=== PATIENT | female | born 1990 | race Caucasian/White ===

== ENCOUNTER 2019-12-05 11:28 | Emergency (ER) | payer OTHER, SELFPAY ==
[2019-12-05 13:04] VITALS: BP 114/69; PULSE 83; RESP 18; TEMP 36.9; O2SAT 97; BMI 25.1
--- NOTE | 2019-12-05 13:11 | CT_ITS ---
EXAMINATION: CT ABDOMEN AND PELVIS WITH CONTRAST CLINICAL INFORMATION: Abdominal pain and bleeding. COMPARISON: CT abdomen and pelvis of from 07/30/2016, 09/11/2014, 07/18/2014. Abdominal ultrasound of 12/05/2015. TECHNIQUE: Multidetector volumetric images were obtained from the superior aspect of the liver through the pubic symphysis following administration 85 mL of Omnipaque 350 intravenous contrast. Sagittal and coronal reformatted images were obtained on the technologist's workstation. Oral contrast: No This CT examination was performed using dose optimization techniques as appropriate, variously including the following: *Automated exposure control *Adjustment of mA and/or kV according to patient size (this includes techniques or standardized protocols for targeted exams where dose is matched to indication/reason for exam; i.e. extremities or head) *Use of iterative reconstruction technique DLP: 381 mGy-cm FINDINGS: LUNG BASES: The visualized lung bases are unremarkable. LIVER, GALLBLADDER, AND BILIARY TREE: The liver is normal in size, shape, and attenuation. No focal hepatic lesion or biliary ductal dilatation is present. The gallbladder is unremarkable with no evidence of radiopaque gallstones, gallbladder wall thickening, or obvious pericholecystic inflammatory changes. PANCREAS: Unremarkable. SPLEEN: Unremarkable. ADRENAL GLANDS: Unremarkable. KIDNEYS AND URETERS: The kidneys are normal in size, shape, and attenuation. No hydronephrosis, hydroureter, or calculi seen. No perinephric stranding. Subcentimeter low-attenuation in the upper right kidney laterally (series 3 image 16) is stable since previous study. BLADDER: Unremarkable. GASTROINTESTINAL TRACT: The stomach is largely decompressed and therefore, not optimally evaluated. No evidence of abnormal small bowel dilatation. An appendix is noted with hyperdense material in the appendix which may represent fecal contents versus appendicolith. The finding is stable in appearance compared to previous study. No evidence of periappendiceal fat stranding. The colon is normal in caliber. No evidence of colonic wall thickening or pericolonic fat stranding. Moderate stool burden is noted in the colon. ABDOMINAL WALL: No significant hernia is appreciated. LYMPH NODES: No evidence of pathologically enlarged lymph nodes are noted. VASCULAR: Unremarkable. PELVIC VISCERA: Unremarkable CT appearance of the uterus and ovaries/adnexa. OSSEOUS STRUCTURES: The bones are stable. No evidence of acute or suspicious osseous lesion. IMPRESSION: No acute abnormality. Moderate stool burden in the colon.
[2019-12-05 13:20] VITALS: PULSE 69; O2SAT 100
--- NOTE | 2019-12-05 13:30 | PC.NURSE ---
PT TRIAGED C/O 1 EPISODE OF VOM MIGEL RED BLOOD THIS AM, REPORTING BLACK STOOLS LAST WK. TAKES NSAIDS REGULARLY FOR HEADACHES, CURRENTLY C/O HEADACHE WELL. HX IBS. VS WNL, PT SPEAKING IN CLEAR FULL SENTENCES. ALL SPECIMENS ACQUIRED, 20G IN R AC, FLUIDS RUNNING.
[2019-12-05] MEDS: 0.9 % Sodium Chloride 1,000 ML 999 ML IVCONT (13:37)
--- NOTE | 2019-12-05 13:54 | ED_ITS ---
HPI - Nausea/Vomiting/Diarrhea General Chief complaint: Nausea/Vomiting/Diarrhea Stated complaint: VOMITING BLOOD Time Seen by Provider: 12/05/19 13:11 Source: patient Mode of arrival: ambulatory Limitations: no limitations History of Present Illness HPI Narrative: This is a 29-year-old female with past medical history that is significant for anxiety disorder, depression, including mCi with seizure and hypertension during her , chronic abdominal pain with IBS, abdominal hernia repair in 2015, 3 C sections who reports she has chronic abdominal pain due to IBS and being followed by GI here Dr. Lyle reports had upper abdominal pain for the past 2 days and this morning she brushed her teeth and vomited. States she vomited 2 oz of blood in bathroom sink she went to work but still had pain that is similar to her chronic pain however this episode of vomiting blood prompt her to come to emergency room. She reports that she has chronic irregular bowel patterns for which she has seen GI for and there is no change to this. No recent sick contacts or travel. No recent food exposure. MD elicited complaint: nausea, vomiting and abdominal pain Onset (ago): day(s) Description of vomiting: bilious and blood-streaked Description of diarrhea: loose Associated nausea: Yes Associated abdominal pain: Yes Location of pain: diffuse Radiation: diffuse Pain consistency: constant Severity: moderate Quality: aching Exacerbating factors: other (Stress ) Treatment prior to arrival: none Related Data Previous Rx's Medication Instructions Recorded dicyclomine 20 mg PO BID #20 tab 12/05/19 ondansetron HCl [Zofran] 4 mg PO Q8H PRN #10 tab 12/05/19 polyethylene glycol 3350 [Miralax] 17 g PO DAILY PRN #238 g 12/05/19 Allergies Allergy/AdvReac Type Severity Reaction Status Date / Time Sulfa (Sulfonamide Allergy Unknown hives Verified 12/05/19 13:03 Antibiotics) sulfamethoxazole Allergy Unknown RASH Verified 12/05/19 13:03 [From BACTRIM] trimethoprim [From BACTRIM] Allergy Unknown RASH Verified 12/05/19 13:03 acetaminophen [Vicodin] AdvReac Unknown nausea Verified 12/05/19 13:03 hydrocodone [Vicodin] AdvReac Unknown nausea Verified 12/05/19 13:03 Review of Systems Review of Systems: Constitutional: No Weight loss, No Fever, No Chills, No Night Sweats, No Fatigue, No Malaise ENT/Mouth: No Hearing loss, No Ear Pain, No Nasal Congestion, No Sinus Pain, No Hoarseness, No sore throat, No Rhinorrhea, No Swallowing Difficulty Eyes: No Eye Pain, No Swelling, No Redness, No Foreign Body, No Discharge, No Vision Changes Cardiovascular: No Chest Pain, No SOB, No Dyspnea on Exertion, No Orthopnea, No Edema, No Palpitations Respiratory: No Cough, No Sputum, No Wheezing, No Smoke Exposure, No Dyspnea Gastrointestinal: + Nausea, + Vomiting, No Diarrhea, No Constipation, + abdominal Pain, No Hematochezia, No Melena Genitourinary: no irregular bleeding, No Dysuria, No Urinary Frequency, No Hematuria, No Urinary Incontinence, No Urgency, No Flank Pain, No Urinary Flow Changes, No Hesitancy Musculoskeletal: No joint pain, No Myalgias, No Joint Swelling Skin: No Skin Lesions, No rash Neuro: No Weakness, No Numbness, No Paresthesias, No Loss of Consciousness, No Dizziness, No Headache Psych: No Anxiety/Panic, No Depression, No SI/HI/AH/VH, No Social Issues, Heme/Lymph: No Bruising, No Bleeding,No Lymphadenopathy Endocrine: No Polyuria, No Polydipsia, No Temperature Intolerance Gastrointestinal: Gastrointestinal: Reports nausea PMFSH Past Medical History Attestation statement: The following information was validated with the patient. Medical History (Updated 12/05/19 @ 16:28 by Yemi Crawford NP) Anxiety IBS (irritable bowel syndrome) PTSD (post-traumatic stress disorder) Social History Social History Alcohol intake: never Smoking Status: Never smoker Use of substances other than those prescribed or required for medical reasons: No Advance Directives: No Advance Directives Information Provided: Yes Physical Exam Vital Signs: Vital Signs: Vital Signs Temp Pulse Resp BP Pulse Ox 12/05/19 13:20 100 12/05/19 13:04 98.5 F 83 18 114/69 97 Body Mass Index 25.1 Reviewed Const: General: cooperative and healthy appearing; No acute distress or intoxicated appearing Nutritional Appearance: average body habitus Orientation/consciousness: patient oriented x3 HENMT: Head: Yes normal to inspection Ears: hearing grossly normal bilaterally Eyes: General: appearance normal, both eyes and all related structures Visual Ruby: normal visual ruby by confrontation Neck: Neck: Yes normal visual inspection and No tender Thyroid: Thyroid normal Chest: Chest palpation & inspection: normal inspection of the chest Resp: Effort & Inspection: normal respiratory effort Cardio: Jugular venous distension: no JVD GI: Inspection: Yes normal to inspection Palpation (GI): Soft to palpation Percussion: Yes normal to percussion Auscultation: normal bowel sounds Rectal Exam - Female: visual inspection normal ( RN Caitlin present for art teacher occult negative.) and normal sphincter tone : General: Yes no CVA tenderness Back/Spine/Pelvis: Back: no CVA tenderness Skin: General skin exam: no rashes or lesions noted Neuro: General: patient oriented x3 Extrem: General: Yes normal to inspection MDM - Nausea/Vomiting/Diarrhea MDM Narrative Medical decision making narrative: Now endorses regular NSAID use. Workup essentially unremarkable. H&H stable. Has not had any nausea vomiting or diarrhea here. abdominal exam benign. CT shows moderate constipation otherwise no acute findings. Occult negative. Stable for outpatient follow-up. Medical Records Attestation: I reviewed the patient's medical records. Medical records narrative: Oct 25, 2017 Dr. Shea: Colonoscopy Findings: No polyps detected. Normal TI. Random biopsies obtained from the colon to check for IBD/microscopic colitis No source found for abdominal pain possible related to adhesions from past C Sections versus constipation pre-dominent IBS Lab Data Result diagrams: 12/05/19 13:35 12/05/19 13:35 Labs: Lab Results 12/05/19 12/05/19 12/05/19 Range/Units 13:35 13:35 13:35 WBC 7.1 (4.8-10.8) X10*3/uL RBC 4.22 (4.20-5.50) X10*6/uL Hgb 13.7 (12.0-16.0) g/dl Hct 39.5 (37-47) % MCV 93.6 (80-98) fL MCH 32.5 (27.0-33.0) pg MCHC 34.7 (31.0-35.0) g/dl RDW 11.1 (11.0-16.0) % Plt Count 248 (160-400) X10*3/uL MPV 8.9 L (9.4-12.3) fL Immature Gran % (Auto) 0.3 (0.0-0.4) % Neut % (Auto) 57.7 (45-73) % Lymph % (Auto) 35.2 (20-40) % [place] % (Auto) 6.0 (2-11) % Eos % (Auto) 0.4 (0-4) % Baso % (Auto) 0.4 (0-2) % Lymph # (Auto) 2.5 (1.2-4.9) X10*3/uL [place] # (Auto) 0.4 (0.1-1.2) X10*3/uL Eos # (Auto) 0.0 (0.0-0.4) X10*3/uL Baso # (Auto) 0.0 (0.0-0.2) X10*3/uL Abs Immat Gran (auto) 0.02 (0.00-0.03) X10*3/uL Absolute Neuts (auto) 4.1 (2.0-8.3) X10*3/uL Absolute Nucleated RBC 0.000 (0.0-0.012) X10*3/uL Nucleated RBC % (auto) 0.0 (0.0-0.2) /100WBC APTT 32.9 (24.1-38.0) SEC Sodium (135-145) mmol/L Potassium (3.3-5.1) mmol/l Chloride (96-108) mmol/L Carbon Dioxide (22-29) mmol/L Anion Gap (12-20) BUN (9-16) mg/dL Creatinine (0.5-1.4) mg/dL Estim Creat Clear Calc Estimated GFR Random Glucose (60-115) mg/dL Calcium (8.4-10.2) mg/dL Total Bilirubin (0.0-1.0) mg/dL Direct Bilirubin (0.0-0.5) mg/dL AST (5-31) U/L ALT (0-31) U/L Alkaline Phosphatase (39-117) U/L Total Protein (6.5-8.0) g/dL Albumin (3.5-5.0) g/dL Urine Color YELLOW Urine Appearance CLEAR Urine pH 7.0 (5.0-8.0) Ur Specific [place] 1.020 (1.005-1.025) Urine Protein NEG (NEG-TRACE) MG/DL Urine Glucose (UA) NEG (NEG) MG/DL Urine Ketones NEG (NEG) MG/DL Urine Blood NEG (NEG) Urine Nitrite NEG (NEG) Ur Leukocyte Esterase NEG (NEG) Urine RBC 0-2 (0) /HPF Urine WBC 0 (0-4) /HPF Ur Squamous Epith Cells 1+ /LPF Urine Bacteria NONE /LPF Urine Test NEGATIVE (NEGATIVE) Stool Occult Blood (NEG) Blood Type Antibody Screen 12/05/19 12/05/19 12/05/19 Range/Units 13:35 13:44 13:54 WBC (4.8-10.8) X10*3/uL RBC (4.20-5.50) X10*6/uL Hgb (12.0-16.0) g/dl Hct (37-47) % MCV (80-98) fL MCH (27.0-33.0) pg MCHC (31.0-35.0) g/dl RDW (11.0-16.0) % Plt Count (160-400) X10*3/uL MPV (9.4-12.3) fL Immature Gran % (Auto) (0.0-0.4) % Neut % (Auto) (45-73) % Lymph % (Auto) (20-40) % [place] % (Auto) (2-11) % Eos % (Auto) (0-4) % Baso % (Auto) (0-2) % Lymph # (Auto) (1.2-4.9) X10*3/uL [place] # (Auto) (0.1-1.2) X10*3/uL Eos # (Auto) (0.0-0.4) X10*3/uL Baso # (Auto) (0.0-0.2) X10*3/uL Abs Immat Gran (auto) (0.00-0.03) X10*3/uL Absolute Neuts (auto) (2.0-8.3) X10*3/uL Absolute Nucleated RBC (0.0-0.012) X10*3/uL Nucleated RBC % (auto) (0.0-0.2) /100WBC APTT (24.1-38.0) SEC Sodium 137 (135-145) mmol/L Potassium 4.1 (3.3-5.1) mmol/l Chloride 106 (96-108) mmol/L Carbon Dioxide 25 (22-29) mmol/L Anion Gap 10 L (12-20) BUN 9 (9-16) mg/dL Creatinine 0.73 (0.5-1.4) mg/dL Estim Creat Clear Calc 93.9 Estimated GFR > 60 Random Glucose 96 (60-115) mg/dL Calcium 9.1 (8.4-10.2) mg/dL Total Bilirubin 0.8 (0.0-1.0) mg/dL Direct Bilirubin 0.3 (0.0-0.5) mg/dL AST 14 (5-31) U/L ALT 13 (0-31) U/L Alkaline Phosphatase 59 (39-117) U/L Total Protein 6.8 (6.5-8.0) g/dL Albumin 4.4 (3.5-5.0) g/dL Urine Color Urine Appearance Urine pH (5.0-8.0) Ur Specific Curtis (1.005-1.025) Urine Protein (NEG-TRACE) MG/DL Urine Glucose (UA) (NEG) MG/DL Urine Ketones (NEG) MG/DL Urine Blood (NEG) Urine Nitrite (NEG) Ur Leukocyte Esterase (NEG) Urine RBC (0) /HPF Urine WBC (0-4) /HPF Ur Squamous Epith Cells /LPF Urine Bacteria /LPF Urine Test (NEGATIVE) Stool Occult Blood NEG (NEG) Blood Type O Positive Antibody Screen NEGATIVE Imaging Data CT scan - abdomen: Radiologist's impression: [place] [id number] CT Scan Report Signed Patient: Zakiya Ellington#: [id number] : 1990Acct:[id number] Age/Sex: 29 / FADM Date: 12/05/19 Loc: HO.ED Attending Dr: Ordering Physician: Yemi Crawford NP Date of Service: 12/05/19 Procedure(s): CT abdomen pelvis w con Accession Number(s): [id number] cc: Yemi Crawford DATA POWER CONSULTANT~ EXAMINATION: CT ABDOMEN AND PELVIS WITH CONTRAST CLINICAL INFORMATION: Abdominal pain and bleeding. COMPARISON: CT abdomen and pelvis of from 07/30/2016, 09/11/2014, 07/18/2014. Abdominal ultrasound of 12/05/2015. TECHNIQUE: Multidetector volumetric images were obtained from the superior aspect of the liver through the pubic symphysis following administration 85 mL of Omnipaque 350 intravenous contrast. Sagittal and coronal reformatted images were obtained on the technologist's workstation. Oral contrast: No This CT examination was performed using dose optimization techniques as appropriate, variously including the following: *Automated exposure control *Adjustment of mA and/or kV according to patient size (this includes techniques or standardized protocols for targeted exams where dose is matched to indication/reason for exam; i.e. extremities or head) *Use of iterative reconstruction technique DLP: 381 mGy-cm FINDINGS: LUNG BASES: The visualized lung bases are unremarkable. LIVER, GALLBLADDER, AND BILIARY TREE: The liver is normal in size, shape, and attenuation. No focal hepatic lesion or biliary ductal dilatation is present. The gallbladder is unremarkable with no evidence of radiopaque gallstones, gallbladder wall thickening, or obvious pericholecystic inflammatory changes. PANCREAS: Unremarkable. SPLEEN: Unremarkable. ADRENAL GLANDS: Unremarkable. KIDNEYS AND URETERS: The kidneys are normal in size, shape, and attenuation. No hydronephrosis, hydroureter, or calculi seen. No perinephric stranding. Subcentimeter low-attenuation in the upper right kidney laterally (series 3 image 16) is stable since previous study. BLADDER: Unremarkable. GASTROINTESTINAL TRACT: The stomach is largely decompressed and therefore, not optimally evaluated. No evidence of abnormal small bowel dilatation. An appendix is noted with hyperdense material in the appendix which may represent fecal contents versus appendicolith. The finding is stable in appearance compared to previous study. No evidence of periappendiceal fat stranding. The colon is normal in caliber. No evidence of colonic wall thickening or pericolonic fat stranding. Moderate stool burden is noted in the colon. ABDOMINAL WALL: No significant hernia is appreciated. LYMPH NODES: No evidence of pathologically enlarged lymph nodes are noted. VASCULAR: Unremarkable. PELVIC VISCERA: Unremarkable CT appearance of the uterus and ovaries/adnexa. OSSEOUS STRUCTURES: The bones are stable. No evidence of acute or suspicious osseous lesion. IMPRESSION: No acute abnormality. Moderate stool burden in the colon. Dictated By:CELSO JOHNSON MD Signed By:<Electronically signed by CELSO JOHNSON MD in OV>12/05/19 1541 DD/ 1311 TD/TT: Warehouse Operations Associate: AP Discharge Plan Discharge Clinical Impression: GIB (gastrointestinal bleeding) Qualifiers: GI bleed type/associated pathology: gastritis Gastritis type: unspecified gastritis Qualified Code(s): K29.71 - Gastritis, unspecified, with bleeding Patient Disposition: Home, Self-Care Instructions: Gastrointestinal Bleeding (ED), Irritable Bowel Syndrome (ED), Constipation (ED), High Fiber Diet (ED) Additional Instructions: avoid taking ibuprofen/ NSAIDs containing medications [place] diet High-fiber diet Take medication prescribed Follow-up with a GI doctor Return if any concerns or worsening symptoms Thank Prescriptions: New ondansetron HCl [Zofran] 4 mg tablet 4 mg PO Q8H PRN (Reason: nausea and vomiting) Qty: 10 RF: 0 dicyclomine 20 mg tablet 20 mg PO BID Qty: 20 RF: 0 polyethylene glycol 3350 [Miralax] 17 gram/dose powder 17 g PO DAILY PRN (Reason: constipation) Qty: 238 RF: 0 Stand Alone Forms: Work/School Release
[2019-12-05 14:01] LABS: MANUAL DIFF FLAG NO
[2019-12-05 14:03] LABS: Basophils Percent Auto 0.4 % (0-2); Eosinophils Percent Auto 0.4 % (0-4); Hematocrit 39.5 % (37-47); Hemoglobin 13.7 g/dl (12.0-16.0); Imm Gran Abs Auto 0.02 X10*3/uL (0.00-0.03); Imm Gran Pct Auto 0.3 % (0.0-0.4); Lymphocytes Absolute Auto 2.5 X10*3/uL (1.2-4.9); Lymphocytes Percent Auto 35.2 % (20-40); Mean Corpuscular HGB Conc 34.7 g/dl (31.0-35.0); Mean Corpuscular Hemoglobin 32.5 pg (27.0-33.0); Mean Corpuscular Volume 93.6 fL (80-98); Mean Platelet Volume 8.9 fL (9.4-12.3); Monocytes Absolute Auto 0.4 X10*3/uL (0.1-1.2); Neutrophils Absolute Auto 4.1 X10*3/uL (2.0-8.3); Neutrophils Percent Auto 57.7 % (45-73); Platelet Count 248 X10*3/uL (160-400); Red Blood Count 4.22 X10*6/uL (4.20-5.50); Red Cell Distribution Width 11.1 % (11.0-16.0); White Blood Count 7.1 X10*3/uL (4.8-10.8)
[2019-12-05 14:05] LABS: Glucose Urine UA NEG (NEG); Leukocyte Esterase Urine NEG (NEG); Nitrite Urine NEG (NEG); Urine Blood NEG (NEG); Urine Ketones NEG (NEG); Urine Protein NEG (NEG-TRACE)
[2019-12-05 14:07] LABS: OBS Int Ctl Valid YES; OBS1 NEG (NEG)
[2019-12-05 14:09] LABS: Appearance Urine CLEAR; Color Urine YELLOW; Partial Thromboplastin Time 32.9 SEC (24.1-38.0)
[2019-12-05 14:11] LABS: UPreg QC Valid YES
[2019-12-05 14:13] LABS: Urine Pregnancy NEGATIVE (NEGATIVE)
[2019-12-05 14:20] LABS: RBC Urine 0-2 /HPF (0); Squamous Epithelial Cell Urine 1+ /LPF; WBC Urine 0 /HPF (0-4)
[2019-12-05 14:22] LABS: Alanine Aminotransferase 13 U/L (0-31); Albumin Level 4.4 g/dL (3.5-5.0); Alkaline Phosphatase 59 U/L (39-117); Anion Gap 10 (12-20); Aspartate Amino Transferase 14 U/L (5-31); Bilirubin Direct 0.3 mg/dL (0.0-0.5); Bilirubin Total 0.8 mg/dL (0.0-1.0); Blood Urea Nitrogen 9 mg/dL (9-16); Calcium 9.1 mg/dL (8.4-10.2); Carbon Dioxide 25 mmol/L (22-29); Chloride 106 mmol/L (96-108); Creatinine Clr Calc Pharmacy 93.9; Estimated Glomerular Filt Rate > 60; Glucose Random 96 mg/dL (60-115); Potassium 4.1 mmol/l (3.3-5.1); Sodium 137 mmol/L (135-145); Total Protein 6.8 g/dL (6.5-8.0)
--- NOTE | 2019-12-05 14:33 | PC.NURSE ---
THIS RN CHAPERONED RECTAL EXAM WITH SENIOR SOFTWARE QUALITY ENGINEER PRETTY.
[2019-12-05] MEDS: iohexoL 350 MG/ML 100 ML INFUS..BTL IV (15:01)
== END 2019-12-06 17:00 | disposition home or self-care (01) ==
PROVIDERS: Nurse Practitioner Primary Care; Emergency Provider Emergency Medicine; PCP Internal Medicine
DX: K29.71 Gastritis, unspecified, with bleeding (principal); Z79.899 Other long term (current) drug therapy
CPT/HCPCS: 36415; 74177; 80053; 80076; 81001; 81025; 82272; 85025; 85730; 86850; 86900; 86901; 96360; 99284

== ENCOUNTER → 2019-12-20 10:45 | Outpatient (BNVA) | payer OTHER, SELFPAY | PROVIDERS: PCP Internal Medicine; Referring Provider Internal Medicine; Visit Provider Nurse Practitioner | DX: K58.2 Mixed irritable bowel syndrome (principal); K64.9 Unspecified hemorrhoids; M62.89 Other specified disorders of muscle | CPT/HCPCS: 99212 ==

== ENCOUNTER → 2019-12-24 15:42 | Outpatient (BNVA) | payer OTHER, SELFPAY | PROVIDERS: PCP Internal Medicine; Visit Provider Surgery | DX: K58.2 Mixed irritable bowel syndrome (principal); K64.9 Unspecified hemorrhoids; R10.9 Unspecified abdominal pain; R11.0 Nausea; Z88.2 Allergy status to sulfonamides; Z88.8 Allergy status to other drugs, medicaments and biological substances | CPT/HCPCS: 99212 ==

== ENCOUNTER 2020-01-16 09:38 | Day surgery (SDC) | payer OTHER, SELFPAY ==
[2020-01-10 10:57] VITALS: BMI 24.5
--- NOTE | 2020-01-15 09:34 | HO.ANESPROP2 ---
Documented by User: Gwen Clarke 01/16/20 11:24 HPI - Anesthesia Eval Consult details Narrative: 29yo F for Upper Endoscopy PMFSH Past Medical History Medical History Anxiety Hemorrhoids Irritable bowel syndrome with both constipation and diarrhea PTSD (post-traumatic stress disorder) Family History Family History Father No problems noted. Mother No problems noted. Daughter No problems noted. 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 Allergies Allergy/AdvReac Type Severity Reaction Status Date / Time Sulfa (Sulfonamide Allergy Unknown hives Verified 01/16/20 09:48 Antibiotics) sulfamethoxazole Allergy Unknown RASH Verified 01/16/20 09:48 [From BACTRIM] trimethoprim [From BACTRIM] Allergy Unknown RASH Verified 01/16/20 09:48 acetaminophen [Vicodin] AdvReac Unknown nausea Verified 01/16/20 09:48 hydrocodone [Vicodin] AdvReac Unknown nausea Verified 01/16/20 09:48 Home Medications Medication Instructions Recorded Confirmed Type methylcellulose (laxative) 500 mg 500 mg PO BID 12/19/19 01/10/20 History tablet Exam Exam Date and Time: January 15, 2020933 Height,Weight and Vital Signs: Height 5 ft 1 in Weight 58.967 kg Assessment and Plan Assessment Anesthesia Assessment: Chart Reviewed Documented by User: Karol Bernardo 01/16/20 09:26 PMFSH Past Medical History Medical History Anxiety Hemorrhoids Irritable bowel syndrome with both constipation and diarrhea PTSD (post-traumatic stress disorder) Family History Family History Father No problems noted. Mother No problems noted. Daughter No problems noted. 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
[2020-01-16 09:51] VITALS: BP 116/78; PULSE 81; RESP 16; TEMP 36.8; O2SAT 96; BMI 25.5
[2020-01-16 10:05] LABS: UPreg QC Valid YES; Urine Pregnancy NEGATIVE (NEGATIVE)
[2020-01-16] MEDS: Lactated Ringers 1,000 ML 100 ML IVCONT (10:15)
--- NOTE | 2020-01-16 10:18 | MHC.SHP ---
Pre-Procedural Eval Section B Chief Complaint: abdominal pain Relevant Family History (Specify if Yes): No Relevant Social History: Tobacco Use Present Medications: see Short Stay Collaborative assessment Medical History: Significant History (anxiety, PTSD) History of Previous Operations: Relevant previous surgery/procedure and date(s) (, hernia repair) Allergies: Allergies Allergy/AdvReac Type Severity Reaction Status Date / Time Sulfa (Sulfonamide Allergy Unknown hives Verified 01/16/20 09:48 Antibiotics) sulfamethoxazole Allergy Unknown RASH Verified 01/16/20 09:48 [From BACTRIM] trimethoprim [From BACTRIM] Allergy Unknown RASH Verified 01/16/20 09:48 acetaminophen [Vicodin] AdvReac Unknown nausea Verified 01/16/20 09:48 hydrocodone [Vicodin] AdvReac Unknown nausea Verified 01/16/20 09:48 Review of Systems Sugical H&P ROS: Negative: Constitution, Cardiovascular, Respiratory, Neurological, Psychiatric, Hem-Onc, Allergic/Immunologic, Gastrointestinal, Genitourinary, Musculoskeletal, Integumentary, Endocrine and Eyes/Ears/Nose/Throat Exam Surgical H&P Exam: Normal: HEENT, Normal: Heart, Normal: Lungs, Normal: Abdomen, Normal: Skin and Normal: Neurological and Significant Findings: Extremities (tenderness) Plan Diagnosis/Plan: Unchanged Patient has been examined and remains a candidate for the planned procedure
--- NOTE | 2020-01-16 10:22 | P.OP_ITS ---
Operative Note Operative Note Date of Service: 01/16/20 Narrative: Procedure Description: EGD FLEXIBLE TRANSORAL UPPER GASTROINTESTINAL ENDOSCOPY UPPER ENDOSCOPY Consent: Indications for the procedure and potential complications of bleeding, perforation, reaction to medications and missed diagnosis were discussed with the patient and informed consent was obtained. Instrument: Olympus GIF H 190 J mid size upper endoscope Monitoring: Vital signs and clinical assessment, continuous EKG monitoring, Pulse oximetry, Carbon Dioxide monitoring and blood pressure monitoring were done throughout the procedure. Procedure: The patient was placed in the left lateral decubitis position and pre-procedure medications were administered and a bite block was placed. The endoscope was inserted into the mouth and advanced under direct vision to the third part of duodenum. A careful inspection was made as the upper endoscope was withdrawn including a retroflexed examination of the proximal stomach; Findings and interventions are described below. Findings: Larynx:normal Esophagus: GE junction at 37 cm, diaphragm hiatus at 37 cm, no varices or esophagitis. Stomach: Patchy gastric erythema. Biopsies were obtained. Grade 2 flap valve on retroflexed examination of the cardia. 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
--- NOTE | 2020-01-16 10:22 | PM.OP ---
Brief Operative Note Date of Service: 01/16/20 Pre-op diagnosis: abdo pain Post-op diagnosis: same Procedure: see op note Surgeon: Rocio Lyle MD Anesthesia: MAC Estimated blood loss (mL): 0 Condition: stable Disposition: PACU
[2020-01-16 10:33] VITALS: BP 100/60; PULSE 85; RESP 16; TEMP 36.6; O2SAT 98
[2020-01-16 10:48] VITALS: BP 129/70; PULSE 77; RESP 14; TEMP 36.6; O2SAT 98
--- NOTE | 2020-01-16 11:24 | HO.POSTANES ---
Post Anesthesia Evaluation Post Anesthesia Evaluation Vital Signs: Vital Signs Temp Pulse Resp BP Pulse Ox 01/16/20 10:48 97.8 F 77 14 129/70 98 01/16/20 10:33 97.8 F 85 16 100/60 98 01/16/20 09:51 98.3 F 81 16 116/78 96 Anesthesia: General (tiva) Mental Status: Awake Pain Control: Satisfactory Nausea/Vomiting: None Hydration: Adequate Anesthesia-Related Issues: No Anes. Related Issues
== END 2020-01-16 11:39 | disposition home or self-care (01) ==
PROVIDERS: Nurse Practitioner; PCP Internal Medicine; Visit Provider Internal Medicine Gastroenterology
PROC: 0DJ08ZZ Inspection of Upper Intestinal Tract, Via Natural or Artificial Opening Endoscopic (ICD-10-PCS; CPT 43235; principal; 2020-01-16 10:10)
DX: K29.40 Chronic atrophic gastritis without bleeding (principal); B96.81 Helicobacter pylori [H. pylori] as the cause of diseases classified elsewhere; K44.9 Diaphragmatic hernia without obstruction or gangrene; K58.2 Mixed irritable bowel syndrome; Z88.2 Allergy status to sulfonamides; Z88.8 Allergy status to other drugs, medicaments and biological substances
CPT/HCPCS: 43239; 81025; 88305; 88342

== ENCOUNTER → 2020-02-01 08:56 | Outpatient (BNVA) | payer OTHER, SELFPAY | PROVIDERS: PCP Internal Medicine; Visit Provider Internal Medicine Gastroenterology | DX: Z76.89 Persons encountering health services in other specified circumstances (principal) ==

== ENCOUNTER → 2020-06-25 10:54 | Outpatient (BNVA) | payer OTHER, SELFPAY | PROVIDERS: PCP Internal Medicine; Visit Provider Nurse Practitioner ==

== ENCOUNTER 2020-12-16 11:50 | Outpatient (REF) | payer OTHER, SELFPAY ==
--- NOTE | ~2020-12-16 | XR_ITS ---
EXAMINATION: CERVICAL AND THORACIC SPINE X-RAYS CLINICAL INFORMATION: Pain COMPARISON: Cervical spine x-ray July 2008 TECHNIQUE: 3 views of the cervical spine and 3 views of the thoracic spine FINDINGS: Cervical spine: Bone alignment is normal. No fracture or dislocation is seen. Disc spaces are normal. Prevertebral soft tissues are normal. Thoracic spine: There is mild curvature of the lower thoracic and upper lumbar spine to the left. Bone alignment is otherwise normal. No fracture or dislocation is seen. Disc spaces are normal. Paraspinal soft tissues are normal. XR/XR cervical spine 3V IMPRESSION: Cervical spine: Unremarkable exam Thoracic spine: Mild curvature of the lower thoracic spine to the left otherwise unremarkable exam.
--- NOTE | ~2020-12-16 | XR_ITS ---
EXAMINATION: CERVICAL AND THORACIC SPINE X-RAYS CLINICAL INFORMATION: Pain COMPARISON: Cervical spine x-ray July 2008 TECHNIQUE: 3 views of the cervical spine and 3 views of the thoracic spine FINDINGS: Cervical spine: Bone alignment is normal. No fracture or dislocation is seen. Disc spaces are normal. Prevertebral soft tissues are normal. Thoracic spine: There is mild curvature of the lower thoracic and upper lumbar spine to the left. Bone alignment is otherwise normal. No fracture or dislocation is seen. Disc spaces are normal. Paraspinal soft tissues are normal. XR/XR thoracic spine 3V IMPRESSION: Cervical spine: Unremarkable exam Thoracic spine: Mild curvature of the lower thoracic spine to the left otherwise unremarkable exam.
== END 2020-12-16 11:51 | disposition home or self-care (01) ==
LOC: HO.HMGCX 11:50
PROVIDERS: PCP Internal Medicine; Visit Provider Physician Assistant Medical
DX: M54.2 Cervicalgia (principal); M54.9 Dorsalgia, unspecified
CPT/HCPCS: 72040; 72072

== ENCOUNTER → 2021-04-07 09:54 | Outpatient (BNVA) | payer OTHER, SELFPAY | PROVIDERS: PCP Internal Medicine; Referring Provider Internal Medicine; Visit Provider Nurse Practitioner | DX: K29.70 Gastritis, unspecified, without bleeding (principal); K58.2 Mixed irritable bowel syndrome; K64.9 Unspecified hemorrhoids; B96.81 Helicobacter pylori [H. pylori] as the cause of diseases classified elsewhere | CPT/HCPCS: 99212 ==

== ENCOUNTER 2021-05-26 12:24 | Outpatient (REF) | payer OTHER, SELFPAY ==
[2021-05-26 12:51] LABS: MANUAL DIFF FLAG NO
[2021-05-26 13:48] LABS: Basophils Percent Auto 0.7 % (0-2); Eosinophils Percent Auto 0.2 % (0-4); Hematocrit 42.1 % (37.0-47.0); Hemoglobin 14.5 g/dl (12.0-16.0); Imm Gran Abs Auto 0.01 X10*3/uL (0.00-0.03); Imm Gran Pct Auto 0.2 % (0.0-0.4); Lymphocytes Percent Auto 37.6 % (20-40); Mean Corpuscular HGB Conc 34.4 g/dl (31.0-35.0); Mean Corpuscular Hemoglobin 32.4 pg (27.0-33.0); Mean Corpuscular Volume 94.2 fL (80.0-98.0); Mean Platelet Volume 8.9 fL (9.4-12.3); Monocytes Absolute Auto 0.3 X10*3/uL (0.1-1.2); Monocytes Percent Auto 6.1 % (2-11); Neutrophils Percent Auto 55.2 % (45-73); Platelet Count 290 X10*3/uL (160-400); Red Blood Count 4.47 X10*6/uL (4.20-5.50); Red Cell Distribution Width 11.3 % (11.0-16.0); White Blood Count 5.4 X10*3/uL (4.8-10.8)
[2021-05-26 14:29] LABS: Alanine Aminotransferase 23 U/L (0-31); Albumin Level 4.6 g/dL (3.5-5.0); Alkaline Phosphatase 63 U/L (39-117); Anion Gap 13 (12-20); Aspartate Amino Transferase 18 U/L (5-31); Bilirubin Total 1.8 mg/dL (0.0-1.0); Blood Urea Nitrogen 11 mg/dL (9-16); Calcium 9.6 mg/dL (8.4-10.2); Carbon Dioxide 26 mmol/L (22-29); Chloride 103 mmol/L (96-108); Cholesterol 173 mg/dL; Estimated Glomerular Filt Rate > 60; Glucose Fasting 91 mg/dL (60-99); HDL Cholesterol 74 mg/dL; LDL Cholesterol Calculated 88 mg/dl; Potassium 4.2 mmol/L (3.3-5.1); Sodium 138 mmol/L (135-145); Total Protein 7.4 g/dL (6.5-8.0); Triglycerides 55 mg/dL
[2021-05-26 14:49] LABS: TSH reflex Free T4 0.74 uIU/mL (0.32-4.0)
[2021-05-26 14:58] LABS: Folate 13.7 ng/mL (> or = 4.0); Vitamin B12 450 pg/mL (200-900)
[2021-05-31 13:46] LABS: Vitamin D 25-OH, D2 <4 ng/mL; Vitamin D 25-OH, D3 13 ng/mL; Vitamin D 25-OH, Total 13 ng/mL (30-100)
== END 2021-05-26 12:25 | disposition home or self-care (01) ==
LOC: HO.LAB 12:24
PROVIDERS: PCP Internal Medicine; Visit Provider Nurse Practitioner Acute Care
DX: Z00.00 Encounter for general adult medical examination without abnormal findings (principal)
CPT/HCPCS: 36415; 80053; 80061; 82306; 82607; 82746; 84443; 85025

== ENCOUNTER 2021-12-15 11:08 | Outpatient (REF) | payer OTHER, SELFPAY ==
[2021-12-15 11:37] LABS: Binax Internal Control QC Valid; Binax Now Covid-19 Ag Negative (Negative); Binax Performed by: HO.BONILM
== END 2021-12-15 11:09 | disposition home or self-care (01) ==
LOC: HO.HMGCLDS 11:08
PROVIDERS: Visit Provider Internal Medicine
DX: Z20.822 Contact with and (suspected) exposure to COVID-19 (principal); J06.9 Acute upper respiratory infection, unspecified
CPT/HCPCS: 87811; C9803

== ENCOUNTER 2022-02-23 11:17 | Outpatient (REF) | payer OTHER, SELFPAY | END 2022-02-23 11:18 | disposition home or self-care (01) | LOC: HO.LNP 11:17 | PROVIDERS: PCP Internal Medicine; Visit Provider Surgery | DX: N61.1 Abscess of the breast and nipple (principal) | CPT/HCPCS: 10060; 10160; 87070; 87076; 87186; 87205; 99202 ==

== ENCOUNTER → 2022-06-22 09:47 | Outpatient (BNVA) | payer OTHER, SELFPAY | PROVIDERS: PCP Internal Medicine; Visit Provider Surgery | DX: N61.0 Mastitis without abscess (principal) | CPT/HCPCS: 99202 ==

== ENCOUNTER → 2022-06-25 10:51 | Outpatient (BNVA) | payer OTHER, SELFPAY | PROVIDERS: PCP Internal Medicine; Visit Provider Surgery | DX: N61.1 Abscess of the breast and nipple (principal); N61.0 Mastitis without abscess | CPT/HCPCS: 99212 ==

== ENCOUNTER 2022-10-28 07:10 | Day surgery (SDC) | payer OTHER, SELFPAY ==
[2022-08-23 09:26] VITALS: BMI 25.3
[2022-10-26 07:39] VITALS: BMI 25.3
--- NOTE | 2022-10-27 13:12 | HO.ANESPROP2 ---
Documented by User: Gwen Clarke NP 10/27/22 13:13 HPI - Anesthesia Eval Consult details Narrative: 32yo F for Left Breast periareolar Mass Excision Smoker PMFSH Active Problems Active Problems: All Active Problems (Updated 12/15/21 @ 11:10 by Kolton Lopez MD) Cellulitis of left breast (Acute) Abscess of left breast (Acute) Amenorrhea (Acute) Upper respiratory tract infection (Acute) Generalized anxiety disorder (Acute) Vitamin D deficiency (Acute) GERD (gastroesophageal reflux disease) (Acute) Moderate major depression, single episode (Acute) Anxiety (Acute) Persistent insomnia (Acute) Right shoulder strain (Acute) Annual physical exam (Acute) Concussion (Acute) Cervical pain (neck) (Acute) Pain of right scapula (Acute) Back pain (Acute) Tobacco abuse (Acute) Overweight (BMI 25.0-29.9) (Acute) Anxiety and depression (Acute) Helicobacter pylori gastritis (Acute) Irritable bowel syndrome with both constipation and diarrhea (Acute) Hematemesis (Acute) Hemorrhoids (Acute) Past Medical History Medical History Tobacco abuse Overweight (BMI 25.0-29.9) Migraine Allergic rhinitis Anxiety and depression Helicobacter pylori gastritis Hemorrhoids Irritable bowel syndrome with both constipation and diarrhea PTSD (post-traumatic stress disorder) Family History Family History Father No problems noted. Mother Hemorrhoids Daughter No problems noted. Other Mental health disorder Surgical History Surgical History Hx of colonoscopy Hx of esophagogastroduodenoscopy Hx of section Hx of hernia repair Social History Social History Household Members: Children Housing: Apartment Alcohol intake: current Alcohol intake frequency: a few times a month Patient Tobacco Use Status: Former Tobacco user Tobacco use type: Cigarette Cigarette Packs Per Day: 0.5 Cigarettes Per Day: 7 Years Smoked: 1.5 e-Cigarette/Vaping Use: Never Used Second Hand Smoke Exposure: No Use of substances other than those prescribed or required for medical reasons: Yes Substance Use Type: Marijuana Advance Directives: No Advance Directives Information Provided: Yes service: No Current occupational status: unemployed 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 Cognitive needs: No Hearing needs: No Vision needs: Yes (glasses) Meds Allergies Allergy/AdvReac Type Severity Reaction Status Date / Time sulfamethoxazole Allergy Intermediate RASH Verified 08/23/22 09:25 [From BACTRIM] trimethoprim [From BACTRIM] Allergy Intermediate RASH Verified 08/23/22 09:25 Sulfa (Sulfonamide Allergy Mild hives Verified 06/25/22 11:02 Antibiotics) hydrocodone [Vicodin] AdvReac Mild nausea Verified 06/25/22 11:02 Exam Exam Date and Time: October 27, 2022 1312 Height,Weight and Vital Signs: Height 5 ft 1 in Weight 60.781 kg Assessment and Plan Assessment Anesthesia Assessment: Chart Reviewed Documented by User: Gumaro Price MD 10/28/22 08:36 PMFSH Past Medical History Medical History Tobacco abuse Overweight (BMI 25.0-29.9) Migraine Allergic rhinitis Anxiety and depression Helicobacter pylori gastritis Hemorrhoids Irritable bowel syndrome with both constipation and diarrhea PTSD (post-traumatic stress disorder) Family History Family History Father No problems noted. Mother Hemorrhoids Daughter No problems noted. Other Mental health disorder Family history of problems with anesthesia: No Surgical History Surgical History Hx of colonoscopy Hx of esophagogastroduodenoscopy Hx of section Hx of hernia repair History of Problems with Anesthesia: No Social History Social History Household Members: Children Housing: Apartment Alcohol intake: current Alcohol intake frequency: a few times a month Patient Tobacco Use Status: Former Tobacco user Tobacco use type: Cigarette Cigarette Packs Per Day: 0.5 Cigarettes Per Day: 7 Years Smoked: 1.5 e-Cigarette/Vaping Use: Never Used Second Hand Smoke Exposure: No Use of substances other than those prescribed or required for medical reasons: Yes Substance Use Type: Marijuana Advance Directives: No Advance Directives Information Provided: Yes service: No Current occupational status: unemployed 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 Cognitive needs: No Hearing needs: No Vision needs: Yes (glasses) Meds Allergies Allergy/AdvReac Type Severity Reaction Status Date / Time sulfamethoxazole Allergy Intermediate RASH Verified 08/23/22 09:25 [From BACTRIM] trimethoprim [From BACTRIM] Allergy Intermediate RASH Verified 08/23/22 09:25 Sulfa (Sulfonamide Allergy Mild hives Verified 06/25/22 11:02 Antibiotics) hydrocodone [Vicodin] AdvReac Mild nausea Verified 06/25/22 11:02 Exam Airway Mallampati Class: I TM Dist: >3cm Neck ROM: Full Loose/Missing/Broken Teeth: No Assessment and Plan Assessment Anesthesia Assessment: Anesthesia Plan Discussed Final Anesthetic Review Family History of Problems with Anesthesia: No History of Problems with Anesthesia: No NPO: Yes ASA Class: II Final Preanesthetic Review: No Changes in Pt Med Stat, Meds/Allgs Chart Reviewed, Consent Obtained/Reviewed and Anes Risks/Benef Reviewed Patient Risk: Low Procedure Risk: Low Anesthetic Plan Anesthetic Plan: MAC: Disposition: Standard PACU
--- NOTE | 2022-10-27 16:13 | MHC.SHP ---
Pre-Procedural Eval Section A Date of Service: 10/27/22 The patient is an INPATIENT: No Changes since office visit: No Cold of Flu in the past 2 weeks, No New Medical Problems, No Changes in Medication and No Patient answered all questions The History & Physical has been completed within 30 days and I have reviewed it.: Yes Section B Chief Complaint: Abscess of the breast and nipple,Mastitis without Allergies: Allergies Allergy/AdvReac Type Severity Reaction Status Date / Time sulfamethoxazole Allergy Intermediate RASH Verified 08/23/22 09:25 [From BACTRIM] trimethoprim [From BACTRIM] Allergy Intermediate RASH Verified 08/23/22 09:25 Sulfa (Sulfonamide Allergy Mild hives Verified 06/25/22 11:02 Antibiotics) hydrocodone [Vicodin] AdvReac Mild nausea Verified 06/25/22 11:02 Plan I have reviewed the history and physical and performed a pertinent physical examination on my patient. No changes have occurred unless specified. Time Spent With Patient Time: Total time managing care of this patient today ____ minutes.
[2022-10-28 07:37] VITALS: BP 106/74; PULSE 82; RESP 16; TEMP 36.2; O2SAT 97
[2022-10-28] MEDS: Lactated Ringers 1,000 ML 100 ML IVCONT (07:45)
--- NOTE | 2022-10-28 07:51 | PC.NURSE ---
called alb for preg result and the urine was in the bucket. awaiting results.
[2022-10-28 08:24] LABS: UPreg QC Valid YES; Urine Pregnancy NEGATIVE (NEGATIVE)
[2022-10-28 09:20] VITALS: BP 115/61; PULSE 98; RESP 20; TEMP 36.6; O2SAT 99
--- NOTE | 2022-10-28 09:22 | W.PM.OPN ---
Operative Note Operative Note Date of Service: 10/28/22 Narrative: Preoperative diagnosis: [] left periareolar sebaceous cyst Postop diagnosis: [] same Procedure [] wide local excision left periareolar sebaceous cyst Surgeon: [] [employer] Production Supervisor: [] Type of Anesthesia: [] mass Indication for surgery: [] patient has had recurrent abscess and infection requiring I and D of a left periareolar breast cyst at the 9 o'clock position. Patient presents for elective excision. Final specimen measured approximately 3 x 2 cm. Findings: [] Patient brought to the operating room, placed on operative table supine position, after adequate level of MAC anesthesia was induced, the left breast was prepped and draped in usual sterile fashion. Proposed incisional site was infiltrated 0.5% Marcaine / 1% lidocaine. A bi- elliptical transverse incision extending from the 10 o'clock position to approximately 8 o'clock position of the left areola encompassing the prior in I&D scar from previous infections, this carried down through skin, subcutaneous tissue, undermined sent to pathology. Wounds irrigated, secured hemostasis, and closed using interrupted inverted dermal 3-0 Vicryl sutures followed by Steri-Strips and sterile dressings. Sponge, needle, and instrument counts reported correct. Patient tolerated the procedure well and emerged anesthesia in stable condition. EBL minimal
[2022-10-28 09:35] VITALS: BP 106/59; PULSE 69; RESP 18; TEMP 36.7; O2SAT 98
[2022-10-28] MEDS: Acetaminophen 325 MG TABLET 975 MG PO (10:16)
[2022-10-28] MEDS: oxyCODONE HCl Immed Release 5 MG TABLET PO (10:18)
[2022-10-28] MEDS: Ondansetron ODT 4 MG TAB.RAPDIS TRANSLINGU (10:18)
== END 2022-10-28 11:31 | disposition home or self-care (01) ==
PROVIDERS: Nurse Practitioner; PCP Internal Medicine; Visit Provider Surgery
PROC: (CPT 19120; principal; 2022-10-28 08:30)
DX: N60.02 Solitary cyst of left breast (principal); N61.0 Mastitis without abscess; J30.9 Allergic rhinitis, unspecified; F43.10 Post-traumatic stress disorder, unspecified; F41.8 Other specified anxiety disorders; E66.3 Overweight; Z68.25 Body mass index [BMI] 25.0-25.9, adult; Z87.891 Personal history of nicotine dependence; Z88.2 Allergy status to sulfonamides; Z88.8 Allergy status to other drugs, medicaments and biological substances; Z79.899 Other long term (current) drug therapy
CPT/HCPCS: 19120; 81025; 88304; J0690; J2250

== ENCOUNTER → 2022-10-28 07:10 | Outpatient (BNV) | payer OTHER, SELFPAY | PROVIDERS: PCP Internal Medicine; Visit Provider Surgery | DX: L72.0 Epidermal cyst (principal) | CPT/HCPCS: 19120 ==

== ENCOUNTER → 2022-11-08 09:49 | Outpatient (BNVA) | payer OTHER, SELFPAY | PROVIDERS: PCP Internal Medicine; Visit Provider Surgery ==

== ENCOUNTER 2022-11-08 09:51 | Outpatient (AMB) | payer OTHER, SELFPAY ==
[2022-11-08 09:55] VITALS: BP 119/72; PULSE 95; BMI 23.0
--- NOTE | 2022-11-08 09:55 | A.OFFVIS_ITS ---
Intake Vital Signs 11/08/22 09:55 Height 5 ft 1 in Weight 122 lb BMI 23.0 BP 119/72 Blood Pressure Location Rt brachial Position Sitting Pulse 95 Intake Visit Reasons: S/P excision Lt periareolar mass Intake Note: Patient here s/p exc Lt periareolar mass. Reports site healing well. Denies pain, itch or tenderness. Some steri strips still in place. Finished cephalexin course. 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 She has minimal incisional discomfort. She has no the wound issues or complaints. Pathology was reviewed. [facility] Medical History Tobacco abuse Overweight (BMI 25.0-29.9) Migraine Allergic rhinitis Anxiety and depression Helicobacter pylori gastritis Hemorrhoids Irritable bowel syndrome with both constipation and diarrhea PTSD (post-traumatic stress disorder) Surgical History (Updated 11/08/22 @ 10:02 by Phong Harrison MD) Hx of surgical procedure (10/28/22) Hx of colonoscopy Hx of esophagogastroduodenoscopy Hx of section Hx of hernia repair Family History Father No problems noted. Mother Hemorrhoids Daughter No problems noted. 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 Assessment & Plan Assessment & Plan (1) Abscess of left breast: Code(s): N61.1 - Abscess of the breast and nipple (2) Cellulitis of left breast: Code(s): N61.0 - Mastitis without abscess (3) Sebaceous cyst: Code(s): L72.3 - Sebaceous cyst Plan Patient has been given local wound instructions, and will follow-up p.r.n.. Quality Reporting (2019) Adult ([facility] 138/04/14/68) Smoking risk assessment performed?: Yes Patient Tobacco Use Status: Former Tobacco user Coding Level of Care Code Global (68992) Diagnoses Abscess of left breast N61.1 Cellulitis of left breast N61.0 Sebaceous cyst L72.3
== END 2022-11-08 10:00 | disposition home or self-care (01) ==
PROVIDERS: PCP Internal Medicine; Visit Provider Surgery
DX: N61.1 Abscess of the breast and nipple (principal); N61.0 Mastitis without abscess; L72.3 Sebaceous cyst
CPT/HCPCS: 99024

== ENCOUNTER 2023-01-25 13:43 | Outpatient (AMB) | payer OTHER, SELFPAY ==
--- NOTE | 2023-01-25 13:46 | MHC.OFFVIS ---
Intake Vital Signs 01/25/23 13:51 Height 5 ft 1 in Weight 126 lb BMI 23.8 BP 104/58 L Blood Pressure Location Rt brachial Position Sitting Pulse 87 Intake Visit Reasons: Left periareolar area ? infected Intake Note: This patient presents for an assessment for question infected left periareolar area. Patient c/o; reports redness, reports was taking abx and had drainage. Bell Cleaner Required: No Accompanied by: Self / Same As Patient Allergies sulfamethoxazole [From BACTRIM] Allergy (Intermediate, Verified 01/25/23 13:53) RASH trimethoprim [From BACTRIM] Allergy (Intermediate, Verified 01/25/23 13:53) RASH Sulfa (Sulfonamide Antibiotics) Allergy (Mild, Verified 01/25/23 13:53) hives hydrocodone [Vicodin] Adverse Reaction (Mild, Verified 01/25/23 13:53) nausea HPI HPI Comments History of Present Illness Details Patient presents for evaluation of left breast areolar discharge. This happened over 2 days time. She presents here for further evaluation. Patient had surgery in the fall and thinks this may have been related to an underlying stitch which was a extruding. Patient well known to me. [facility] Medical History Tobacco abuse Overweight (BMI 25.0-29.9) Migraine Allergic rhinitis Anxiety and depression Helicobacter pylori gastritis Hemorrhoids Irritable bowel syndrome with both constipation and diarrhea PTSD (post-traumatic stress disorder) Surgical History Hx of surgical procedure (10/28/22) Hx of colonoscopy Hx of esophagogastroduodenoscopy Hx of section Hx of hernia repair Family History Father No problems noted. Mother Hemorrhoids Daughter No problems noted. 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 Patient stated that the area spontaneously discharged yesterday. Assessment & Plan Assessment & Plan (1) Cellulitis of left breast: Code(s): N61.0 - Mastitis without abscess Plan Patient has a script for Keflex at home and she is to take those as well as warm compresses to the area and she will see me in proximal weeks time or p.r.n. for follow-up. Further interventions and studies will be directed by the patient's clinical course. All questions were answered. Quality Reporting (2020) Adult ([facility] 138/04/14/68) Smoking risk assessment performed?: Yes Patient Tobacco Use Status: Former Tobacco user Coding Level of Care Code Est Pt Level 4 (53326) Diagnoses Cellulitis of left breast N61.0
[2023-01-25 13:51] VITALS: BP 104/58; PULSE 87; BMI 23.8
== END 2023-01-25 14:10 | disposition home or self-care (01) ==
PROVIDERS: PCP Internal Medicine; Visit Provider Surgery
DX: N61.0 Mastitis without abscess (principal)
CPT/HCPCS: 99024

== ENCOUNTER → 2023-01-25 13:43 | Outpatient (BNVA) | payer OTHER, SELFPAY | PROVIDERS: PCP Internal Medicine; Visit Provider Surgery | DX: N61.0 Mastitis without abscess (principal) | CPT/HCPCS: 99212 ==

== ENCOUNTER 2023-03-04 11:05 | Outpatient (AMB) | payer OTHER, SELFPAY ==
--- NOTE | 2023-03-04 11:06 | A.OFFVIS_ITS ---
Intake Intake Visit Reasons: ? infection nipple Intake Note: Patient scheduled urgent appointment for infection on nipple. Patient reports on and off infections since surgery in October. Patient c/o: pain to touch, redness, inflammation, patchy around nipple. Drains yellowish discharge. 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 This has been a chronic problem for the patient. This latest episode has been for approximately 3 days. She is complaining of pain, redness, and warmth to the area. Patient is well known to [facility] Medical History Tobacco abuse Overweight (BMI 25.0-29.9) Migraine Allergic rhinitis Anxiety and depression Helicobacter pylori gastritis Hemorrhoids Irritable bowel syndrome with both constipation and diarrhea PTSD (post-traumatic stress disorder) Surgical History Hx of surgical procedure (10/28/22) Hx of colonoscopy Hx of esophagogastroduodenoscopy Hx of section Hx of hernia repair Family History Father No problems noted. Mother Hemorrhoids Daughter No problems noted. 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 Very tender to palpation. Assessment & Plan Assessment & Plan (1) Cellulitis of left breast: Code(s): N61.0 - Mastitis without abscess Plan I discussed the patient therapeutic options which include attempting conservative therapy with antibiotics local wound care or directly to incision and drainage. She is opted for the former. Patient will be given script for antibiotics, local wound care, and will see me in few days time or p.r.n.. Should his symptoms progress or worsen, she should call the office or over the weekend go to the ER. All questions answered. Medications: New cephalexin 500 mg PO BID 30 caps 0RF Quality Reporting (2019) Adult ([facility] 138/04/14/68) Smoking risk assessment performed?: Yes Patient Tobacco Use Status: Former Tobacco user Coding Level of Care Code Est Pt Level 4 (92894) Diagnoses Cellulitis of left breast N61.0
== END 2023-03-04 11:22 | disposition home or self-care (01) ==
PROVIDERS: PCP Internal Medicine; Visit Provider Surgery
DX: N61.0 Mastitis without abscess (principal)
CPT/HCPCS: 99214

== ENCOUNTER → 2023-03-04 11:05 | Outpatient (BNVA) | payer OTHER, SELFPAY | PROVIDERS: PCP Internal Medicine; Visit Provider Surgery | DX: N61.0 Mastitis without abscess (principal) | CPT/HCPCS: 99212 ==

== ENCOUNTER 2023-06-23 09:12 | Outpatient (AMB) | payer OTHER, SELFPAY ==
[2023-06-23 09:15] VITALS: BP 120/80; PULSE 76; TEMP 36.1; O2SAT 99; BMI 22.9
--- NOTE | 2023-06-23 09:15 | AM.OFFWIN_ITS ---
Intake Vital Signs 06/23/23 09:15 Height 5 ft 1 in Weight 121 lb BMI 22.9 BP 120/80 Blood Pressure Location Lt brachial Position Sitting Pulse 76 Pulse Source Pulse Oximeter Temp 97.0 F Temp Source Temporal Artery Scan Pulse Oximetry (%) 99 Oxygen Delivery Method Room Air Intake Visit Reasons: EP right wrist sprain? Intake Note: pt is here today for rt wrist sprain started 2 days ago Patient Tobacco Use Status: Former Tobacco user Allergies sulfamethoxazole [From BACTRIM] Allergy (Intermediate, Verified 06/23/23 09:18) RASH trimethoprim [From BACTRIM] Allergy (Intermediate, Verified 06/23/23 09:18) RASH Sulfa (Sulfonamide Antibiotics) Allergy (Mild, Verified 06/23/23 09:18) hives hydrocodone [Vicodin] Adverse Reaction (Mild, Verified 06/23/23 09:18) nausea Do you need a note to return to daycare/school/sports/work: No HPI HPI Comments History of Present Illness Details 33 y/o female patient who presents to [place] in clinic with c/o right arm pain associated with numbness and tingling. Pt reports pain radiating from shoulder down to her fingers on right side. Denies any injury or trauma. She does report right shoulder dislocation in the past with no surgical intervention done. Pt believes the pain might be related to the shoulder injury. [facility] Medical History Tobacco abuse Overweight (BMI 25.0-29.9) Migraine Allergic rhinitis Anxiety and depression Helicobacter pylori gastritis Hemorrhoids Irritable bowel syndrome with both constipation and diarrhea PTSD (post-traumatic stress disorder) Surgical History Hx of surgical procedure (10/28/22) Hx of colonoscopy Hx of esophagogastroduodenoscopy Hx of section Hx of hernia repair Family History Father No problems noted. Mother Hemorrhoids Daughter No problems noted. 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 Cognitive needs: No Hearing needs: No Vision needs: Yes (glasses) Review of Systems Const All systems reviewed & are unremarkable except as noted in HPI and below Physical Exam Vital Signs: Last Vital Signs Temp 97.0 F 06/23/23 09:15 Pulse 76 06/23/23 09:15 BP 120/80 06/23/23 09:15 Pulse Ox 99 06/23/23 09:15 Oxygen Delivery Method Room Air 06/23/23 09:15 BMI result Body Mass Index 22.9 Const General: comfortable and no acute distress Nutritional Appearance: thin Orientation/consciousness: patient oriented x3 Neuro General: patient oriented x3 Extrem General: Yes normal to inspection and Yes full ROM Right upper extremity: shoulder/upper arm Details: normal to inspection and normal ROM; no tenderness and no swelling, elbow/forearm Details: normal to inspection and normal ROM; no tenderness and no swelling, wrist Details: normal to inspection and normal ROM; no tenderness and no swelling and Extremity exam: right hand Details: normal to inspection, normal capillary refill, neuromotor exam normal and neurosensory exam normal Left upper extremity: normal to inspection and full ROM Assessment & Plan Assessment & Plan (1) Peripheral neuropathic pain: Code(s): M79.2 - Neuralgia and neuritis, unspecified Plan: Sprain vs Strain vs nerve impingement Referral for PT Wrist/hand brace F/U with PCP for possible EMG testing Orders: Orders PT Evaluation and Treatment Today M79.2 - Neuralgia and neuritis, unspecified Medications: New cyclobenzaprine 5 mg PO BEDTIME 10 tabs 0RF M79.2 - Neuralgia and neuritis, unspecified gabapentin 100 mg PO BEDTIME 20 caps 0RF M79.2 - Neuralgia and neuritis, unspecified Coding Level of Care Code Est Pt Level 3 (38863) Diagnoses Peripheral neuropathic pain M79.2 Time Spent (min) 15
== END 2023-06-23 10:39 | disposition home or self-care (01) ==
PROVIDERS: PCP Internal Medicine; Visit Provider Nurse Practitioner Family
DX: M79.2 Neuralgia and neuritis, unspecified (principal)
CPT/HCPCS: 99213